=== PATIENT | female | born 1965 | race Caucasian/White ===

== ENCOUNTER 2020-09-11 23:05 | Emergency (ER) | payer BC ==
[~2020-09-11] VITALS: Ht 157.5 cm; Wt 68.2 kg
--- NOTE | 2020-09-11 23:45 | NUR ---
Per Poison control monitor on monitoring manager for 12hrs, watch for prolonged QT, Torsades and Seizures that can occure with Lexapro OD. The Xanax and Alcohol will cause Repiratory depression, do not use Flumazenil. Go straight to intubation if needed, with IV fluids and pressors. Watch electrolytes keep potassium >4.0, Mg >2.0, Ca >9.0. Get Blood alcohol level, ASA and Tylenol levels and Urine tox sceen.
[2020-09-11 23:56] LABS: BASOPHILS # (AUTO) 0.1 X10'3 (0-0.2); BASOPHILS % (AUTO) 1.3 % (0-1); EOSINOPHILS # (AUTO) 0.1 X10'3 (0-0.9); EOSINOPHILS % (AUTO) 1.7 % (0-6); HEMATOCRIT 35.3 % (35.0-45.0); HEMOGLOBIN 11.6 g/dl (12.0-16.0); LYMPHOCYTES # (AUTO) 2.3 X10'3 (1.1-4.8); MEAN CORPUSCULAR HEMOGLOBIN 29.6 PG (27.0-31.0); MEAN CORPUSCULAR HGB CONC 32.8 g/dL (33.0-36.5); MEAN CORPUSCULAR VOLUME 90.2 FL (78-98); MEAN PLATELET VOLUME 8.6 FL (7.4-10.4); MONOCYTES # (AUTO) 0.7 X10'3 (0-0.9); MONOCYTES % (AUTO) 8.3 % (2-12); NEUTROPHILS # (AUTO) 5.2 X10'3 (1.8-7.7); NEUTROPHILS % (AUTO) 61.7 % (42-75); PLATELET COUNT 348 X10'3 (140-440); RED BLOOD COUNT 3.92 X10'6 (4.20-5.60); RED CELL DISTRIBUTION WIDTH 15.7 % (11.5-14.5); WHITE BLOOD COUNT 8.4 X10'3 (4.5-11.0)
[2020-09-11 23:57] LABS: CLARITY,URINE CLEAR (Clear); COLOR,URINE YELLOW (Yellow); GLUCOSE, URINE NEGATIVE (Neg); KETONES,URINE NEGATIVE (Neg); LEUKOCYTE ESTERASE ,URINE TRACE (Neg); NITRITES, URINE NEGATIVE (Neg); OCCULT BLOOD,URINE TRACE-INTACT (Neg); PH,URINE 5.5 (4.8-8.0); PROTEIN,URINE NEGATIVE (Neg); UROBILINOGEN,URINE 0.2 E.U/dL (0.2-1.0)
[2020-09-12] MEDS ORDERED: normal saline 1000ml 1,000 ML IV ONE ×4 (00:05→01:25)
[2020-09-12 00:10] LABS: UA COLLECTION TYPE STRAIGHT CATH
[2020-09-12 00:11] LABS: BACTERIA,URINE NONE SEEN /HPF (Neg); RBC,URINE 0-2 /HPF (0-2); SQUAMOUS EPITHELIAL CELL,UR FEW /LPF (FEW); WBC,URINE 0-4 /HPF (0-4)
[2020-09-12 00:16] LABS: URINE AMPHETAMINE SCREEN NEGATIVE (Neg); URINE BARBITUATE SCREEN NEGATIVE (Neg); URINE BENZODIAZEPINES SCREEN POSITIVE (Neg); URINE CANNABINOID SCREEN NEGATIVE (Neg); URINE COCAINE SCREEN NEGATIVE (Neg); URINE METHADONE SCREEN NEGATIVE (Neg); URINE OPIATE SCREEN NEGATIVE (Neg); URINE PHENCYCLIDINE SCREEN NEGATIVE (Neg)
[2020-09-12 00:18] LABS: ALANINE AMINOTRANSFERASE 118 U/L (12-78); ALBUMIN 3.8 G/DL (3.4-5.0); ALKALINE PHOSPHATASE 101 IU/L (46-116); ANION GAP 13 (8-16); ASPARTATE AMINO TRANSFERASE 86 U/L (10-37); BILIRUBIN,TOTAL 0.3 MG/DL (0.1-1.0); BLOOD UREA NITROGEN 9 MG/DL (7-18); BUN/CREATININE RATIO 10.8 (6.6-38.0); CALCIUM 8.8 MG/DL (8.5-10.1); CHLORIDE 96 MMOL/L (99-107); CREATININE 0.83 MG/DL (0.40-0.90); ETHANOL 0.233 GM/DL (0.0-0.010); GLUCOSE 99 MG/DL (70-104); SODIUM 137 MMOL/L (135-145); TOTAL CARBON DIOXIDE 28.1 MMOL/L (24-32); TOTAL PROTEIN 7.6 G/DL (6.4-8.2); eGFR 72 ML/MIN
[2020-09-12 00:25] LABS: ACETAMINOPHEN < 2.0 UG/ML (10-30); POTASSIUM 2.8 MMOL/L (3.5-5.1)
[2020-09-12] MEDS ORDERED: potassium CL 10mEq/100ml bag 100 ML IV PRN (00:30)
[2020-09-12] MEDS ORDERED: magnesium 4gm in 100ml NS 100 ML IV PRN (00:30)
[2020-09-12] MEDS ORDERED: potassium Cl 20 mEq SR tablet PO PRN (00:30)
[2020-09-12] MEDS ORDERED: magnesium 2GM in 50ml NS 50 ML IV PRN (00:30)
[2020-09-12] MEDS ORDERED: potassium Cl 40MEQ/1/2NS 520ml 520 ML IV PRN (00:30)
[2020-09-12] MEDS ORDERED: magnesium 2GM in 50ml NS 50 ML IV ONE (00:35)
[2020-09-12] MEDS ORDERED: NOREPINEPHRINE BITARTRATE/D5W 250 ML IV PRN (02:10)
[2020-09-12] MEDS ORDERED: NORepinephrine 8mg/ 250ml NS 250 ML IV PRN (02:12)
--- NOTE | 2020-09-12 03:50 | NUR ---
UP to the commode
--- NOTE | 2020-09-12 03:57 | NUR ---
Patient awake and up to bedside commode.
--- NOTE | 2020-09-12 05:59 | NUR ---
Patient up to bedside commode, still unsteady on her feet.
[2020-09-12 06:08] LABS: ALANINE AMINOTRANSFERASE 104 U/L (12-78); ALBUMIN 3.1 G/DL (3.4-5.0); ALKALINE PHOSPHATASE 90 IU/L (46-116); ANION GAP 9 (8-16); ASPARTATE AMINO TRANSFERASE 78 U/L (10-37); BILIRUBIN,TOTAL 0.2 MG/DL (0.1-1.0); BLOOD UREA NITROGEN 7 MG/DL (7-18); BUN/CREATININE RATIO 10.4 (6.6-38.0); CALCIUM 7.2 MG/DL (8.5-10.1); CHLORIDE 107 MMOL/L (99-107); CREATININE 0.67 MG/DL (0.40-0.90); GLUCOSE 83 MG/DL (70-104); POTASSIUM 3.6 MMOL/L (3.5-5.1); SODIUM 141 MMOL/L (135-145); TOTAL CARBON DIOXIDE 25.2 MMOL/L (24-32); TOTAL PROTEIN 6.2 G/DL (6.4-8.2); eGFR > 90 ML/MIN
[2020-09-12 06:09] LABS: BILIRUBIN,DIRECT 0.1 MG/DL (0-0.3); MAGNESIUM 2.2 MG/DL (1.5-2.4)
[2020-09-12 07:30] VITALS: BP 101/69
--- NOTE | 2020-09-12 12:26 | NUR ---
DALTON FROM POISON CONTROL RECOMMENDS REPEAT EKG. AND IF EKG IS NORMAL POISON CONTROL WILL SIGN OFF ON CASE.
--- NOTE | 2020-09-12 13:32 | NUR ---
PACKET FAXED TO [facility]
== END 2020-09-12 18:17 | disposition home or self-care (01) ==
LOC: ER 23:08
DX: T42.4X2A Poisoning by benzodiazepines, intentional self-harm, initial encounter (principal); R41.82 Altered mental status, unspecified; E87.6 Hypokalemia; Y92.89 Other specified places as the place of occurrence of the external cause
CPT/HCPCS: 36415; 80048; 80053; 80076; 80305; 80320; 80329; 81001; 83735; 85025; 93005; 96361; 96365; 96366; 96368; 99285; J3475; J3480; J7030; 81003